=== PATIENT | female | born 1940 | race Caucasian/White ===

== ENCOUNTER 2016-12-19 14:52 | Observation (INO) | payer MEDICARE ==
[~2016-12-19] VITALS: Ht 165.1 cm; Wt 89.6 kg
[~2016-12-19 14:52] MED LIST: ADVAIR DISK1 INH; ADVAIR DISKUS IN; CELEBREX100 M1 PO; CELEBREX200 M1 PO; COMBIVENT; COMBIVENT RESPIMAT IN; DIOVAN HC1 PO; FLEXERIL PO; MEDDOSEPAK PO; PROTONIX40 M2 PO; TRAMADOL HCL50 MG PO
--- NOTE | 2016-12-19 14:57 | NUR ---
PT TO ROOM 10 VIA WC.
[2016-12-19 15:33] LABS: HEMATOCRIT 32.7 % (37.0-47.0); HEMOGLOBIN 10.8 g/dl (12.0-16.0); IMMATURE GRANULOCYTES 0.6 % (0.0-1.0); MEAN CELL VOLUME 88.9 fL CALC (80.0-100.0); MEAN CORPUSCULAR HGB 29.3 pG CALC (26.0-32.0); NEUT# 7.35 thou/uL (2.00-7.15); RED BLOOD COUNT 3.68 mill/uL (4.20-5.60); RED CELL DISTRI WIDTH 12.8 % (11.5-15.5)
[2016-12-19 15:54] LABS: ALBUMIN 3.9 g/dL (3.2-5.0); ALKALINE PHOSPHATASE 77 u/l (38-126); ANION GAP 15 (6-22 (CALC)); BILIRUBIN, TOTAL 0.8 mg/dL (0.0-1.4); BUN 22 mg/dL (8-23); BUN/CREATININE RATIO 29 (12-20 (CALC)); CALCIUM 9.2 mg/dL (8.4-10.2); CARBON DIOXIDE 27 mmol/l (22-30); CHLORIDE 104 mmol/l (95-108); CREATININE 0.8 mg/dL (0.5-1.0); GFR > 60 ML/MIN (>=60 (CALC)); GFR FOR AFR.AMER. > 60 ML/MIN (>=60 (CALC)); GLUCOSE 128 mg/dL (82-115); POTASSIUM 4.2 mmol/l (3.5-5.1); SGOT/AST 35 u/l (9-36); SGPT/ALT 29 u/l (11-66); SODIUM 142 mmol/l (137-146); TOTAL PROTEIN 7.2 g/dL (6.3-8.2)
[2016-12-19 15:58] LABS: MYOGLOBIN 34 ng/mL (0 - 62)
--- NOTE | 2016-12-19 16:00 | NUR ---
PT AWAITING LAB/XRAY RESULTS. VSS. IV SITE HEALTHY. NO C/O PAIN AT THIS TIME. SKIN WDI
[2016-12-19] MEDS ORDERED: BRILINTA90 MG PO (16:06)
[2016-12-19] MEDS ORDERED: ASPIRIN EC81 MG PO (16:07)
[2016-12-19] MEDS ORDERED: ATORVASTATIN CA80 MG PO (16:08)
[2016-12-19] MEDS ORDERED: CARVEDILOL3.125 MG PO (16:08)
--- NOTE | 2016-12-19 17:04 | NUR ---
PT SEMIFOWLERS. NO APPARENT DISTRESS. IV SITE HEALTHY. MEDICATED FOR 2/10 C/O PAIN TO ARMS MORESO W/MOVEMENT.
--- NOTE | 2016-12-19 17:40 | NUR ---
REPORT PROVIDED TO NATALIE NURSE, ON MEDSURG. PT TO MEDSURG VIA STRETCHER ON TELEMETRY. IV SITE HEALTHY. NO APPARENT DISTRESS.
[2016-12-19 17:58] VITALS: BP 181/86
--- NOTE | 2016-12-19 17:58 | NUR ---
FROM ER VIA STRETCHER ACCOMPANIED BY FAMILY AND HUMBERTO ESPINOZA. PT AMBULATES TO BED WITH STEADY GAIT. RESPS EVEN AND UNLABORED ON ROOM AIR, TELE MONITOR IN PLACE. DENIES PAIN OR DISCOMFORT. ORIENTED TO ROOM AND CALL SYSTEM. SAFETY PRECAUTIONS REINFORCED. BED IN LOWEST POSITION WITH WHEELS LOCKED. CALL LIGHT WITHIN REACH. WILL CONTINUE TO MONITOR.
--- NOTE | 2016-12-19 19:46 | NUR ---
REPORT RECEIVED FROM ZEKE; PT. DENIES ANY DISCOMFORT AT THIS TIME AND APPEARS TO BE STABLE W/NO SIGNS OF DISTRESS; CALL LIGHT W/IN REACH AND PT.ENCOURAGED TO CALL.
--- NOTE | 2016-12-19 21:50 | NUR ---
PT.MEDICATED ORDERS PROVIDE; PT.ASSESSED, NO PAIN AT THIS TIME; PT.MEDICATED SELF W/MEDICATION FROM HOME "[facility] [address]," MEDICATION SENT TO PHARMACY PHYSICIAN ORDERS PROVIDE DUE TO NON-FORMULATED MED; CALL LIGHT W/IN REACH, PT.INSTRUCTED TO CALL FOR ASSISTANCE
[2016-12-19 23:25] VITALS: BP 158/66
--- NOTE | 2016-12-20 | NUR ---
PT.C/O PAIN IN BACK OF SHOULDER, STATES THAT IT IS HER TYPICAL CHRONIC PAIN FROM HER SHOULDER AND REQUESTS PAIN MEDICATION, PROVIDED ORDERED; DENIES ANY FURTHER NEEDSA AT THIS TIME; CALL LIGHT AND BST W/IN REACH
--- NOTE | 2016-12-20 03:15 | NUR ---
PT.SLEEPING AT THIS TIME; NO S/S OF DISTRESS
[2016-12-20 03:40] VITALS: BP 147/67
[2016-12-20 03:46] LABS: HEMATOCRIT 29.5 % (37.0-47.0); HEMOGLOBIN 9.7 g/dl (12.0-16.0); IMMATURE GRANULOCYTES 0.4 % (0.0-1.0); MEAN CELL VOLUME 89.4 fL CALC (80.0-100.0); MEAN CORPUSCULAR HGB 29.4 pG CALC (26.0-32.0); MEAN CORPUSCULAR HGB CONC 32.9 g/L CALC (32.0-36.0); NEUT# 6.7 thou/uL (2.00-7.15); RED BLOOD COUNT 3.3 mill/uL (4.20-5.60); RED CELL DISTRI WIDTH 12.7 % (11.5-15.5)
[2016-12-20 04:20] LABS: ANION GAP 13 (6-22 (CALC)); BUN 31 mg/dL (8-23); BUN/CREATININE RATIO 34 (12-20 (CALC)); CALCIUM 8.9 mg/dL (8.4-10.2); CARBON DIOXIDE 26 mmol/l (22-30); CHLORIDE 106 mmol/l (95-108); CREATININE 0.9 mg/dL (0.5-1.0); GFR > 60 ML/MIN (>=60 (CALC)); GFR FOR AFR.AMER. > 60 ML/MIN (>=60 (CALC)); GLUCOSE 103 mg/dL (82-115); POTASSIUM 4.2 mmol/l (3.5-5.1); SODIUM 141 mmol/l (137-146)
--- NOTE | 2016-12-20 07:00 | NUR ---
SHIFT CHANGE REPORT FROM PABLO SOLIS RESTING IN BED AWAKE ALERT AND ORIENTED, NO C/O DISCOMFORT AT THIS TIME, CALL TOSCANO IN REACH.
[2016-12-20 08:16] VITALS: BP 140/76
[2016-12-20 11:21] VITALS: BP 138/71
--- NOTE | 2016-12-20 11:59 | NUR ---
ED JUST REPORTED HR = 48, PT OBSERVED AND NO SIGN DISCOMFORT OBSERVED/REPORTED VITALS MEASURED, HR = 62 AT THIS TIME. ALL NEEDS ADDRESSED, CALL TOSCANO IN REACH.
--- NOTE | 2016-12-20 14:40 | NUR ---
Discharge instructions given. Patient verbalizes understanding of same. Discharged in stable condition via Wheelchair to Home with family. All belongings sent with pt.
== END 2016-12-20 14:30 | disposition home or self-care (01) ==
LOC: ENPENDDIS → ED 14:52 → ED-I 16:19 → ED 17:00 → MS2 17:01
PROVIDERS: Emergency Medicine; ADMIT Internal Medicine; ATTEND Internal Medicine
DX: R07.9 Chest pain, unspecified (principal); I25.10 Atherosclerotic heart disease of native coronary artery without angina pectoris; I10 Essential (primary) hypertension; D64.9 Anemia, unspecified; M25.512 Pain in left shoulder; R06.02 Shortness of breath; M54.89 Other dorsalgia; R53.83 Other fatigue; I25.2 Old myocardial infarction; Z95.5 Presence of coronary angioplasty implant and graft; Z79.02 Long term (current) use of antithrombotics/antiplatelets; Z79.82 Long term (current) use of aspirin

== ENCOUNTER 2017-05-03 07:49 | Emergency (ER) | payer MEDICARE ==
[~2017-05-03] VITALS: Ht 165.1 cm; Wt 80.0 kg
[~2017-05-03 07:49] MED LIST changes: +ASPIRIN EC81 MG PO; +ATORVASTATIN CA80 MG PO; +BRILINTA90 MG PO; +CARVEDILOL3.125 MG PO
[2017-05-03 08:31] LABS: HEMOGLOBIN 11.8 g/dl (12.0-16.0); IMMATURE GRANULOCYTES 0.4 % (0.0-1.0); MEAN CELL VOLUME 88.2 fL CALC (80.0-100.0); MEAN CORPUSCULAR HGB 28.9 pG CALC (26.0-32.0); MEAN CORPUSCULAR HGB CONC 32.8 g/L CALC (32.0-36.0); NEUT# 9.7 thou/uL (2.00-7.15); RED BLOOD COUNT 4.08 mill/uL (4.20-5.60); RED CELL DISTRI WIDTH 15.1 % (11.5-15.5)
[2017-05-03] MEDS ORDERED: DOXYCYCL HYC100 MG PO (08:47)
[2017-05-03] MEDS ORDERED: MOTRIN400 MG PO (08:47)
[2017-05-03 08:58] VITALS: BP 180/72
== END 2017-05-03 09:05 | disposition home or self-care (01) ==
LOC: ED 07:49
PROVIDERS: Family Medicine
DX: M25.571 Pain in right ankle and joints of right foot (principal); M25.471 Effusion, right ankle; Z79.82 Long term (current) use of aspirin

== ENCOUNTER 2017-05-19 16:20 | Emergency (ER) | payer MEDICARE ==
[~2017-05-19] VITALS: Ht 165.1 cm; Wt 90.0 kg
[~2017-05-19 16:20] MED LIST changes: +DOXYCYCL HYC100 MG PO; +MOTRIN400 MG PO
[2017-05-19 17:55] LABS: HEMATOCRIT 38.1 % (37.0-47.0); HEMOGLOBIN 12.6 g/dl (12.0-16.0); IMMATURE GRANULOCYTES 0.4 % (0.0-1.0); MEAN CELL VOLUME 87.2 fL CALC (80.0-100.0); MEAN CORPUSCULAR HGB 28.8 pG CALC (26.0-32.0); MEAN CORPUSCULAR HGB CONC 33.1 g/L CALC (32.0-36.0); NEUT# 12.56 thou/uL (2.00-7.15); RED BLOOD COUNT 4.37 mill/uL (4.20-5.60); RED CELL DISTRI WIDTH 14.3 % (11.5-15.5)
[2017-05-19 18:12] LABS: ALKALINE PHOSPHATASE 287 u/l (38-126); AMYLASE 31 u/l (30-110); ANION GAP 12 (6-22 (CALC)); BILIRUBIN, TOTAL 1.5 mg/dL (0.0-1.4); BUN 16 mg/dL (8-23); BUN/CREATININE RATIO 28 (12-20 (CALC)); CALCIUM 9.6 mg/dL (8.4-10.2); CARBON DIOXIDE 30 mmol/l (22-30); CHLORIDE 98 mmol/l (95-108); CREATININE 0.6 mg/dL (0.5-1.0); GFR > 60 ML/MIN (>=60 (CALC)); GFR FOR AFR.AMER. > 60 ML/MIN (>=60 (CALC)); GLUCOSE 135 mg/dL (82-115); LIPASE 46 u/l (23-300); POTASSIUM 3.5 mmol/l (3.5-5.1); SGOT/AST 88 u/l (9-36); SGPT/ALT 102 u/l (11-66); SODIUM 135 mmol/l (137-146); TOTAL PROTEIN 7.7 g/dL (6.3-8.2)
[2017-05-19 18:23] LABS: MYOGLOBIN 19 ng/mL (0 - 62)
[2017-05-19 22:51] VITALS: BP 185/89
== END 2017-05-19 23:00 | disposition home or self-care (01) ==
LOC: ED 16:20
PROVIDERS: Emergency Medicine
DX: M54.9 Dorsalgia, unspecified (principal); M79.642 Pain in left hand; I10 Essential (primary) hypertension; M19.90 Unspecified osteoarthritis, unspecified site; I25.2 Old myocardial infarction; K21.9 Gastro-esophageal reflux disease without esophagitis; J45.909 Unspecified asthma, uncomplicated; R07.9 Chest pain, unspecified
CPT/HCPCS: Q9967

== ENCOUNTER 2017-05-21 15:45 | Emergency (ER) | payer MEDICARE | END 2017-05-21 15:52 | disposition left against medical advice (07) | LOC: ED 15:45 → LWOBS 15:52 → ED 15:52 | DX: Z91.19 Patient's noncompliance with other medical treatment and regimen (principal) ==

== ENCOUNTER 2017-12-14 15:42 | Inpatient (IN) | payer MEDICARE ==
[~2017-12-14] VITALS: Ht 165.1 cm; Wt 70.8 kg
[~2017-12-14 15:42] MED LIST changes: +DIOVAN80 MG PO; +LASIX40 MG PO; +METFORMIN500 M1 PO; +POT CHLORIDE10 ME5 PO
--- NOTE | 2017-12-21 19:15 | NUR ---
report rec'd per krysta sun. rec'd to icu7 per bed from or. awake. denies c/o. sling & ice bag cont to lt shoulder. dsg cdi. hob elevated. range master shows sinus rhythm. #20 rt wrist. rl infusing @ 100cchr. up tp bsc x2 assists to void. wang well. voided well. history obtained per pt. oriented to room. fall precautions cont.
[2017-12-21 19:22] VITALS: BP 200/90
[2017-12-21 19:48] VITALS: BP 210/80
--- NOTE | 2017-12-21 19:50 | NUR ---
bp 210/80. dr hester notified. orders rec'd.
[2017-12-21 20:30] VITALS: BP 180/82
--- NOTE | 2017-12-21 20:50 | NUR ---
pt admits need to void. bladder scan shows 626cc urine. up to bsc. voided 250cc.
[2017-12-21 21:21] VITALS: BP 180/78
[2017-12-21 22:25] VITALS: BP 180/80
--- NOTE | 2017-12-21 22:25 | NUR ---
bp 180/80. hydralizine 10mg ivp given.
[2017-12-21 22:45] VITALS: BP 136/60
--- NOTE | 2017-12-21 22:45 | NUR ---
bp 136/60. dr hester notified. no new orders.
--- NOTE | 2017-12-22 00:01 | NUR ---
awakens easily. denies c/o. ice bag & sling cont.
[2017-12-22 00:05] VITALS: BP 150/70
[2017-12-22 04:15] VITALS: BP 142/80
--- NOTE | 2017-12-22 04:15 | NUR ---
lab here. blood drawn. up to bsc. voided well. bp 142/80.
[2017-12-22 05:51] LABS: ANION GAP 15 (6-22 (CALC)); BUN 19 mg/dL (8-23); BUN/CREATININE RATIO 26 (12-20 (CALC)); CARBON DIOXIDE 27 mmol/l (22-30); CHLORIDE 102 mmol/l (95-108); CREATININE 0.7 mg/dL (0.5-1.0); GFR > 60 ML/MIN (>=60 (CALC)); GFR FOR AFR.AMER. > 60 ML/MIN (>=60 (CALC)); POTASSIUM 3.9 mmol/l (3.5-5.1); SODIUM 140 mmol/l (137-146)
--- NOTE | 2017-12-22 06:20 | NUR ---
lab here. blood redrawn.
[2017-12-22 06:37] LABS: HEMATOCRIT 32.4 % (37.0-47.0); HEMOGLOBIN 10.6 g/dl (12.0-16.0); MEAN CELL VOLUME 88.3 fL CALC (80.0-100.0); MEAN CORPUSCULAR HGB 28.9 pG CALC (26.0-32.0); MEAN CORPUSCULAR HGB CONC 32.7 g/L CALC (32.0-36.0); RED BLOOD COUNT 3.67 mill/uL (4.20-5.60); RED CELL DISTRI WIDTH 13.9 % (11.5-15.5)
--- NOTE | 2017-12-22 07:30 | NUR ---
PT RESTING IN BED, ALERT AND ORIENTED, AM ASSESSMENT COMPLETED SEE INTERVENTIONS, SKIN WARM AND DRY WITH INCSION TO LEFT SHOULDER INTACT AND SLING IN PLACE, BP COMPLETED MANUALLY 120/60, TELE READING SR RATE IN THE 60'S, IVF INFUSING AT PRESCRIBED RATE COMFORT MEASURES PROVIDED, WILL CONTINUE TO MONITOR. CALL TOSCANO WITHIN REACH, INSTRUCTED TO CALL FOR ANY NEEDED ASSISTANCE.
--- NOTE | 2017-12-22 07:45 | NUR ---
PT DENIES NEED FOR PAIN MEDICATION STATES SOME NUMBNESS & TINGLING IN LEFT HAND FINGERS, GOOD CAP REFILL AND MOVEMENT NOTED, DRESSING TO LEFT SHOULDER REMAINS CLEAN DRY AND INTACT
[2017-12-22 08:00] VITALS: BP 120/60
--- NOTE | 2017-12-22 08:46 | NUR ---
MEDICATED WITH ONE PERCOCET DC PT REQUEST, EDUCATED REGARDING PAIN CONTROL AND IF NEEDED TO NOTIFY NURSE FOR SECOND PAIN PILL, PT VERBALIZES UNDERSTANDING, AND CALL TOSCANO WITHIN REACH
--- NOTE | 2017-12-22 09:44 | NUR ---
PT CALLS REQUESTING SECOND PAIN PILL, MEDICATED ORDERED, CALL TOSCANO WITHIN REACH, COMFORT MEASURES PROVIDED, WILL CONTINUE TO MONITOR
[2017-12-22 12:00] VITALS: BP 140/54
--- NOTE | 2017-12-22 12:49 | NUR ---
MEDICATED FOR COMPLAINTS OF PAIN, CALL TOSCANO WITHIN REACH.
--- NOTE | 2017-12-22 13:18 | NUR ---
PT STATES PAIN MEDICATION HELPED A LITTLE BUT NOT A LOT, "I'LL GIE IT A LITTLE BIT LONGER" COMFORT MEASURES PROVIDED, ICE PACK IN PLCE ON LEFT SHOULD, WILL CONTINUE TO MONITOR.
--- NOTE | 2017-12-22 14:22 | NUR ---
PT CONTINUES HAVING PAIN, AWARE NEW ORDERS REC'D, WILL ADMINISTER ORDERED, CALL TOSCANO WITHIN REACH, OOB WITH ASSIST OT BSC, CONTINENT OF SMALL AMOUNT 100 ML CONCENTRATED URINE, KELBY CARE ASSIST PROVIDED BACK TO BED AND REPOSITIONED FOR COMFORT, CALL TOSCANO WITHIN REACH
[2017-12-22] MEDS ORDERED: DILAUDID2 MG PO (16:10)
--- NOTE | 2017-12-22 16:13 | NUR ---
PT STATES ADEQUATE PAIN RELIEF WITH DILAUDID PO, AWARE AND PLANNED D/C TODAY WITH PT/OT AND HH, PT AWARE INCISION DRESSING REMAINS CLEAN DRY AND INTACT, CALL EVERTON MENDOZA, BETY CARRERA AWARE OF PLAN WELL.
[2017-12-22 16:15] VITALS: BP 130/54
--- NOTE | 2017-12-22 17:15 | NUR ---
MEDICATED FOR PAIN PRIOR TO PENDING D/C, SON AT BEDSIDE
[2017-12-22 17:18] VITALS: BP 130/54
--- NOTE | 2017-12-22 17:24 | NUR ---
Discharge instructions given. Patient verbalizes understanding of same. Discharged in stable condition via Wheelchair to Home with family. All belongings sent with pt. SCRIPT FOR DILAUDID PO SENT WITH PT & SON
== END 2017-12-22 17:25 | DRG 483 ==
LOC: MS2 12-21 10:00 → ICU 12-21 12:56 → MS2 12-21 14:45 → ICU 12-22 17:25
PROVIDERS: Internal Medicine; ADMIT Orthopaedic Surgery; ATTEND Orthopaedic Surgery
PROC: 0RRK00Z Replacement of Left Shoulder Joint with Reverse Ball and Socket Synthetic Substitute, Open Approach (ICD-10-PCS; principal; 2017-12-21)
PROC: 0LS40ZZ Reposition Left Upper Arm Tendon, Open Approach (ICD-10-PCS; 2017-12-21)
DX: M19.012 Primary osteoarthritis, left shoulder (principal); D64.9 Anemia, unspecified; I16.0 Hypertensive urgency; I10 Essential (primary) hypertension; E11.9 Type 2 diabetes mellitus without complications; M75.102 Unspecified rotator cuff tear or rupture of left shoulder, not specified as traumatic; S46.212A Strain of muscle, fascia and tendon of other parts of biceps, left arm, initial encounter; I25.10 Atherosclerotic heart disease of native coronary artery without angina pectoris; J45.909 Unspecified asthma, uncomplicated; I25.2 Old myocardial infarction; X58.XXXA Exposure to other specified factors, initial encounter; Z95.5 Presence of coronary angioplasty implant and graft; Z79.84 Long term (current) use of oral hypoglycemic drugs
CPT/HCPCS: J2710